=== PATIENT | female | born 1960 | race Asian ===

== ENCOUNTER 2022-07-24 09:47 | Day surgery (SDC) | payer OTHER ==
[~2022-07-24] VITALS: Ht 160 cm; Wt 75.3 kg
[2022-07-24] MEDS ORDERED: fentaNYL citrate 0.05 MG/ML VIAL ONE (11:02)
[2022-07-24] MEDS ORDERED: LIDOCAINE 2% 100 MG/5 ML UJET TP ONE (11:03)
[2022-07-24] MEDS ORDERED: MIDAZOLAM 5 MG/5 ML VIAL ONE (11:03)
== END 2022-07-24 12:03 | disposition home or self-care (01) ==
LOC: MDS 09:47 → MMU 09:47 → MDS 12:03
PROVIDERS: ATTEND Internal Medicine Gastroenterology
DX: K64.0 First degree hemorrhoids (principal); Z20.822 Contact with and (suspected) exposure to COVID-19
CPT/HCPCS: 45350; 87426; J3010; J2250